=== PATIENT | female | born 1985 | race Caucasian/White ===

== ENCOUNTER 2019-06-06 09:06 | Outpatient (CLI) | payer OTHER ==
--- NOTE | 2019-06-06 14:45 | NM ---
NUCLEAR MEDICINE TOMOGRAPHIC IMAGING EXAM: 06/06/19 HISTORY: Narcolepsy. Family history of Parkinson's disease. TECHNIQUE: A nuclear medicine tomographic brain scan was performed after administration of 4.3 millicuries of I- 123 Ioflupane. FINDINGS: There is a comma shaped appearance of the uptake of the radiopharmaceutical in the basal ganglia. IMPRESSION: Normal uptake of radiopharmaceutical in the basal ganglia excludes a parkinsonian syndrome. POS: [facility]
== END 2019-06-06 09:07 | disposition home or self-care (01) ==
LOC: NM 09:06
DX: G47.52 REM sleep behavior disorder (principal)
CPT/HCPCS: 78803; A9584